=== PATIENT | male | born 1980 | race Caucasian/White ===

== ENCOUNTER 2025-04-26 20:47 | Emergency (ER) | payer SELFPAY ==
[~2025-04-26] VITALS: Ht 185.4 cm; Wt 108.0 kg
[2025-04-26 21:12] LABS: BASOPHILS % 1.0 % (0.0-1.0); EOSINOPHILS % 1.9 % (0.0-6.0); LYMPHOCYTES % 18.5 % (18.0-39.1); MONOCYTES % 6.0 % (4.4-11.3); NEUTROPHILS % 72.1 % (38.7-80.0); RED CELL DISTRIBUTION WIDTH 13.2 % (11.7-14.4)
[2025-04-26] MEDS: SODIUM CHLORIDE 0.9% 1000ML 1,000 ML IV SCH (21:18)
[2025-04-26 21:19] LABS: LEUKOCYTE ESTERASE ,URINE NEGATIVE (NEGATIVE); PROTEIN,URINE DIPSTICK 1+ (NEGATIVE)
[2025-04-26 21:20] LABS: URINE UROBILINOGEN 0.2 mg/dL (0.2 - 1)
[2025-04-26 21:30] LABS: EPITHELIAL CELLS,URINE FEW /LPF
[2025-04-26 21:31] LABS: CALCIUM OXALATE CRYSTALS,UR MANY (FEW)
[2025-04-26 21:35] LABS: EST GLOMERULAR FILTRATION RATE 78.0 ML/MIN (>=60)
[2025-04-26] MEDS ORDERED: CEFDINIR300 MG PO (21:52)
[2025-04-26 22:55] VITALS: PULSE 94; RESP 15; TEMP 98.2; O2SAT 96
== END 2025-04-26 22:56 | disposition home or self-care (01) ==
LOC: ER 20:52
DX: F41.9 Anxiety disorder, unspecified (principal); N39.0 Urinary tract infection, site not specified; R94.31 Abnormal electrocardiogram [ECG] [EKG]
CPT/HCPCS: 36415; 80053; 81001; 82550; 85025; 93005; 99284; J0696; J7030